=== PATIENT | female | born 1955 | race Caucasian/White ===

== ENCOUNTER 2022-03-04 12:25 | Emergency (ER) | payer OTHER, SELFPAY ==
--- NOTE | ~2022-03-04 | XR_ITS ---
EXAM: XR abdomen obstructive series DATE: 03/04/2022 13:53 HISTORY: abdominal lacaeration, evaluate for FB, GLASS . COMPARISON: None available. FINDINGS: Clear lung bases. Normal bowel gas pattern. Pelvic phleboliths. Calcifications in the subc utaneous fat superficial to the xiphoid seen in the lateral view. 1 cm long linear radiopacity, less dense than typical glass, deep to the inferior portions of the abdominal bandage. IMPRESSION: Suspected glass foreign body chips in the subcutaneous anterior abdominal fat superficial to the xiphoid. More inferiorly is a 1 cm radiopacity of uncertain significance, may represent forei gn body or artifact. Reviewed, dictated and finalized at location K. IMPRESSION: Suspected glass foreign body chips in the subcutaneous anterior abd ominal fat superficial to the xiphoid. More inferiorly is a 1 cm radiopacity of uncertain significance, may represent foreign body or artifact.
--- NOTE | ~2022-03-04 | XR_ITS ---
EXAM: XR elbow LT min 3V DATE: 03/04/2022 13:53 HISTORY: laceration to elbow, evaluate for FB, GLASS . COMPARISON: None available. FINDINGS: Normal mineralization. No fracture or dislocation. No lytic or blastic lesion. Joint space s are maintained. No erosion or periosteal change. Soft tissues within normal limits. IMPRESSION: No acute osseous finding in the left elbow. Reviewed, dictated and finalized at location K.
[2022-03-04 12:40] VITALS: BP 147/77; PULSE 87; RESP 18; TEMP 37; O2SAT 96
--- NOTE | 2022-03-04 13:40 | ED.WOUNDLAC ---
HPI - Wound/Laceration General Chief Complaint: Wound/Laceration Stated Complaint: laceration to abdomen Time Seen by Provider: 03/04/22 12:56 History of Present Illness HPI narrative: 66-year-old female presents the emergency room for evaluation of multiple lacerations. Patient states she was carrying a glass vase, when she tripped and fell. Glass vase broke and she landed on top of the broken pieces of glass. Patient suffered multiple lacerations to her abdomen, and 1 to her left elbow Related Data Allergies Allergy/AdvReac Type Severity Reaction Status Date / Time tomato AdvReac Unknown Unknown Verified 03/04/22 12:52 Review of Systems Review of Systems: CONSTITUTIONAL: Denies fever, chills, or sweats. EYES: Denies visual changes, redness, or discharge. ENT: Denies rhinorrhea, congestion, sore throat, or otalgia. CARDIOVASCULAR: Denies chest pain, palpitations, or edema. RESPIRATORY: Denies cough or dyspnea. GASTROINTESTINAL: Denies abdominal pain, nausea, vomiting, or diarrhea. GENITOURINARY: Denies dysuria or hematuria. SKIN: Reports multiple lacerations to the abdomen, 1 laceration to left elbow MUSCULOSKELETAL: Denies back pain, joint pain, or myalgia. NEUROLOGIC: Denies headache, numbness, dizziness, or weakness. PSYCHIATRIC: Denies anxiety or depression. [facility] Past Medical History Medical History BMI 35.0-35.9,adult BMI 37.0-37.9, adult Depression Elevated glucose Rhinitis Screening, lipid Shingles Surgical History Surgical History H/O: hysterectomy History of bunionectomy Family History Family History Other Asthma Family history of coronary artery disease Family history of thyroid disease Hypertension Malignant neoplasm of prostate Social History Social History Alcohol intake: current Exam Narrative: GENERAL: Well-appearing, well-nourished, no physical limitations, and in no acute distress. HEAD: Normocephalic, atraumatic. EYES: Conjunctivae normal, PERRLA and EOMI. CHEST: Clear to auscultation. No respiratory distress. No wheezes rales or rhonchi. No tenderness. HEART: Regular rate and rhythm. No murmur heard. Normal peripheral pulses. ABDOMEN: Soft, nontender, nondistended, normal active bowel sounds. X3 linear shaped lacerations : Normal external male/female exam. BACK: No CVA tenderness; No cervical/thoracic/lumbar tenderness, step-offs, bony abnormality; FROM EXTREMITIES: Normal range of motion. No edema. No clubbing or cyanosis; left elbow: Abrasion noted SKIN: Warm, dry, no rash. No noted wounds NEURO: No focal deficits. Alert and oriented x3. MAEW. CN's II-XI intact bilaterally, normal gait PSYCH: Cooperative. Normal mood and affect. Course Vital Signs Vital signs: Vital Signs Temperature 37.0 C 03/04/22 12:40 Pulse Rate 87 03/04/22 12:40 Respiratory Rate 18 03/04/22 12:40 Blood Pressure 147/77 H 03/04/22 12:40 Pulse Oximetry 96 03/04/22 12:40 Oxygen Delivery Room Air 03/04/22 12:40 Temperature 37.0 C 03/04/22 12:40 Pulse Rate 87 03/04/22 12:40 Respiratory Rate 18 03/04/22 12:40 Blood Pressure 147/77 H 03/04/22 12:40 Pulse Oximetry 96 03/04/22 12:40 Oxygen Delivery Room Air 03/04/22 12:40 Procedures Laceration Laceration 1: Date: 03/04/22 Time: 15:47 Site: other Size (cm): 2 Description: linear Local Anesthetic: lidocaine 1% and with epi Amount of anesthesia used (mL): 6 Pre-repair: wound explored and irrigated extensively ====== Skin Level ====== Skin layer closed with: nylon Size (cm): 4-0 Number of sutures: 5 Technique: simple, interrupted ====== Subcutaneous Layer ====== ====== Muscle Layer ======
[2022-03-04] MEDS: fentaNYL CITRATE INJ (*CRX) 100 MCG/2 ML VIAL (15:05)
[2022-03-04] MEDS: LIDOCAINE HCL 1% LOCAL INJ 20 ML VIAL INFILTRATE (15:33)
[2022-03-04] MEDS: TETANUS,DIPHTHERIA,AC PERTUSSIS ADULT (0.5 ML) BOOSTRIX IM (15:44)
[2022-03-04 16:19] LABS: Basophils Percent Auto 0.3 % (0.2-1.2); Eosinophils Absolute Auto 0.1 K/mm3 (0-0.3); Eosinophils Percent Auto 0.9 % (0-4.4); Hematocrit 38.7 % (37.0-47.0); Hemoglobin 12.7 g/dL (12.0-15.0); Immature Granulocyte Absolute 0.04 K/mm3 (0.00-0.031); Immature Granulocyte Percent A 0.4 % (0-0.5); Lymphocytes Percent Auto 25.4 % (18.3-44.2); Mean Corpuscular HGB Conc 32.8 g/dl (32-36); Mean Corpuscular Hemoglobin 28.5 pg (26-34); Mean Corpuscular Volume 86.8 fl (80-100); Mean Platelet Volume 10.5 fl (7.4-10.4); Monocytes Absolute Auto 0.7 K/mm3 (0.1-0.6); Monocytes Percent Auto 5.9 % (2.6-8.5); Neutrophils Absolute Auto 7.7 K/mm3 (1.3-6.7); Neutrophils Percent Auto 67.1 % (45.5-73.1); Platelet Count Result 295 k/mm3 (150-375); Red Blood Count 4.46 M/mm3 (4.2-5.4); Red Cell Distribution Width 13.3 % (11.5-14.5); White Blood Count 11.4 K/mm3 (4.5-10.0)
== END 2022-03-04 16:39 | disposition home or self-care (01) ==
PROVIDERS: Emergency Provider Nurse Practitioner Family; PCP Family Medicine
DX: S31.119A Laceration without foreign body of abdominal wall, unspecified quadrant without penetration into peritoneal cavity, initial encounter (principal); S51.012A Laceration without foreign body of left elbow, initial encounter; F32.9 Major depressive disorder, single episode, unspecified; Z90.710 Acquired absence of both cervix and uterus; Z23 Encounter for immunization; W01.110A Fall on same level from slipping, tripping and stumbling with subsequent striking against sharp glass, initial encounter
CPT/HCPCS: 12004; 36415; 73080; 74019; 85025; 90471; 90715; 96365; 96372; 99284; J0696; J3010

== ENCOUNTER → 2022-07-08 09:47 | Outpatient (CLI) | payer BC, SELFPAY ==
--- NOTE | ~2022-07-08 | CT_ITS ---
EXAMINATION: CT abdomen pelvis wo con DATE: 07/08/2022 10:02 INDICATION: Lower abdominal pain TECHNIQUE: Computed tomography (CT) of the abdomen and pelvis was performed without intravenous contr ast. The dose-length product (DLP) was 1046.24 mGy-cm. Automated exposure control and iterative recon struction technique were employed. COMPARISON: None FINDINGS: Minimal dependent atelectasis is present in the lung bases. The heart size is normal. Cysts of the liver measure up to 2.1 cm in the right hepatic lobe. Stones are present in the nondistended gallbladder. The spleen, pancreas, and adrenal glands are normal. Cysts of the kidneys measure up to 2.5 cm on the left. No pathologically enlarged abdominal or pelvic lymph nodes are identified. There is no free intraperitoneal gas or evidence of bowel obstruction. Colonic diverticulosis is present wi thout evidence of diverticulitis. There is moderate lumbar spondylosis. A fat-containing umbilical he rnia is noted. IMPRESSION: 1. No CT correlate for the patient's symptoms. Reviewed, dictated and finalized at location B. RMATION STRATEGIST
== END ==
PROVIDERS: PCP Family Medicine; Visit Provider Surgery
DX: R10.9 Unspecified abdominal pain (principal)
CPT/HCPCS: 74176

== ENCOUNTER 2022-09-10 00:09 | Day surgery (SDC) | payer BC, SELFPAY ==
[2022-08-28 11:49] VITALS: BMI 38.6
--- NOTE | 2022-08-28 11:53 | PC.NURSE ---
Report to the Outpatient Waiting Room, entrance under the green pavilion located off [facility], at time 1000 on date 09/10/22. Planned Procedure Time: 1200. Time changes happen often and if your time is changed the preop area will call you the afternoon before. - You and your visitor will be asked to self-screen and do not enter if you have any COVID symptoms. - Only one visitor is requested with a max of two and NO children visitors are allowed at this time. - The patient visitor may be requested to leave or wait in car when not with patient due to distancing restrictions. - A mask is REQUIRED within the hospital. Patients may have clear liquids (water, carbonated beverages, clear teas, apple juice) until 3 hours prior to surgery with a maximum of 20 ounces. - No food from midnight until time of surgery Take the following medications with a SIP of water the morning of surgery: LEXAPRO, ANTIBIOTIC IF STILL TAKING Medications to discontinue per physician: N/A Date to take last dose: N/A Please no make-up, nail german, hairspray, perfume, deodorant, or body powder the day of surgery. No jewelry (including any body piercings) or valuables the day of surgery, leave them at home. Please take a shower or bath the night before, or the morning of, surgery with an antibacterial soap. Wear comfortable, loose fitting clothing. - Jewelry must be removed prior to entering the operating room. Rings and piercings that are not removed may be cut off. - The hospital will not accept responsibility for valuables. - Please leave all valuables, including medications, at home the day of surgery. If you are going home after surgery, a licensed dump truck driver must drive you home. - NO public transportation without another adult if you receive anesthesia. - We recommend that an adult stay with you for 24 hours following discharge. - We also recommend that you do not drive, make important decision, drink alcoholic beverages, or take any drugs that were not prescribed by your health care provider for at least 24 hours after your discharge time. Follow any additional instructions given to you from your surgeon. If you or anyone in your household have experienced Covid symptoms in the past week, please notify your surgeon or the nurse liaison at the phone number below for possible testing. Telephone instructions given to PT - ИВАН EDMOND and asked if any additional questions and then verbalized understanding. Patient advised to call surgeon office or pre surgery nurse liaison [phone] if any additional questions.
[2022-09-10 11:00] VITALS: BP 142/74; PULSE 69; RESP 16; TEMP 36.7; O2SAT 98
[2022-09-10] MEDS: LACTATED RINGERS 1,000 ML 30 ML IV CONT (11:21)
--- NOTE | 2022-09-10 11:46 | P.PNAN_ITS ---
Anes - Initial Pre Proc Eval Procedure: Operation Date: 09/10/22 12:00 Proposed Procedures p Excisional Biopsy Hypertrophic Scar Left Upper Quadrant Abdominal Wall - Doretha Rodriguez MD Date/Time: 09/10/22 11:46 Surgeon: Doretha Rodriguez MD Pre Op Diagnosis: HYPERTROPHIC SCAR Patient Data Age: 66 Gender: F Height: 1.63 m Weight: 102.1 kg Allergies Allergy/AdvReac Type Severity Reaction Status Date / Time tomato AdvReac Unknown Unknown Verified 08/28/22 11:47 adhesive tape AdvReac Blister Verified 08/28/22 11:48 Home Medications Medication Instructions Recorded Confirmed Type escitalopram oxalate 20 mg tablet 20 mg PO DAILY #30 tabs 06/04/22 09/10/22 Rx (Lexapro) aspirin 81 mg capsule 81 mg PO DAILY 06/25/22 09/10/22 History Patient hx anesthesia problems: none Family hx anesthesia problems: none Results Review: All pre-operative results and documents have been reviewed as part of the pre- operative evaluation. [facility], [facility] Past Medical History Medical History Abdominal wall pain BMI 35.0-35.9,adult BMI 37.0-37.9, adult BMI 39.0-39.9,adult Depression Elevated glucose Rhinitis Screening, lipid Shingles Surgical History Surgical History H/O: hysterectomy History of bunionectomy Family History Family History Other Asthma Family history of coronary artery disease Family history of thyroid disease Hypertension Malignant neoplasm of prostate Social History Social History Smoking status: Never smoker Alcohol intake: current Alcohol use details: 1/MONTH Substance use: never Substance use type: does not use Living arrangements: with family 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 Informed Consent: The patient's anesthetic plan and its attendant risks and benefits were discussed with the patient/family/POA. Questions were solicited and answers provided to the satisfaction of the patient/family/POA.
--- NOTE | 2022-09-10 11:56 | WPDHPUPDATE1 ---
History and Physical Update Update Date/Time: 09/10/22 11:56 History and Physical has been reviewed, including an updated exam of the patient. There are NO changes in the patient's condition. Risks, benefits, and alternatives have been discussed and questions answered. Patient agrees to proceed with procedure.
[2022-09-10] MEDS: ceFAZolin 2 GM/D5W 50 ML 2 GM/50 ML BAG IVPB (12:07)
[2022-09-10] MEDS: LIDOCAINE HCL 1% PF 30 ML VIAL INFILTRATE (12:23)
[2022-09-10 12:42] VITALS: BP 111/66; PULSE 70; RESP 12; O2SAT 100
--- NOTE | 2022-09-10 12:45 | W.PM.PROC2 ---
Procedure Note - Detailed Date of Procedure 09/10/22 Pre-op Diagnosis Painful hypertrophic scar left upper abdomen Post-op Diagnosis Same Procedure Performed excisional biopsy hypertrophic scar left upper abdomen measuring approximately 4 x 2 cm Surgeon Doretha Rodriguez MD Anesthesia MAC and Local Indications 66-year-old female with hypertrophic scar from previous trauma in left upper abdomen with significant pain in the area Findings hypertrophic scar left upper abdomen with scar extending into the subcutaneous tissue Description of Procedure The patient was taken to the operating room and placed in the supine position. After adequate induction MAC anesthesia, the patient was prepped and draped in the normal sterile fashion. A time-out was then done number by the patient's identity, as well as the procedure being performed. I began by localizing the area in and around this hypertrophic scar in the left upper abdomen. Once locally anesthetized, I made an elliptical incision in the dermis to excise the scar. This incision was carried down into the subcutaneous tissue. There was noted to be scarring within the subcutaneous tissue as well and this was subsequently removed with the specimen. The specimen was completely excised and will be sent to pathology for further review. This specimen measured approximately 4 x 2 cm and contained both dermis subcutaneous tissue. I then used Bovie cautery to gain hemostasis. The subcutaneous tissue was closed with 3-0 Vicryl suture. The skin was closed with 4-0 Monocryl subcuticular suture. The patient tolerated procedure well and was alert awake in the operating room. She will sent to the recovery room in stable condition. Estimated Blood Loss 5 Drains No Packing No Pathology Yes Complications No immediate complications Condition Stable Disposition PACU [facility] Billing Surgery - Charge Forward: Surgery Billing
[2022-09-10 13:12] VITALS: BP 134/67; PULSE 62; RESP 16; O2SAT 99
[2022-09-10] MEDS: oxyCODONE HCL (*CRX) 5 MG TAB IR PO (13:27)
[2022-09-10 13:42] VITALS: BP 125/72; PULSE 58; RESP 16
== END 2022-09-10 14:00 | disposition home or self-care (01) ==
PROVIDERS: PCP Family Medicine; Visit Provider Surgery
PROC: (CPT 11406; principal; 2022-09-10 12:00)
DX: L91.0 Hypertrophic scar (principal); F32.A Depression, unspecified; Z79.82 Long term (current) use of aspirin; E66.9 Obesity, unspecified; Z68.38 Body mass index [BMI] 38.0-38.9, adult
CPT/HCPCS: 11406; 12032; 88304; A9270; J0690; J2250; J2704; J3010; J7120

== ENCOUNTER 2024-01-21 01:08 | Day surgery (SDC) | payer BC, SELFPAY ==
[2024-01-06 11:12] VITALS: BMI 31.0
[2024-01-21 06:15] VITALS: BP 134/80; PULSE 70; RESP 16; TEMP 35.9; O2SAT 100; BMI 30.2
[2024-01-21] MEDS: LACTATED RINGERS 1,000 ML 150 ML IV CONT (06:35)
--- NOTE | 2024-01-21 06:40 | P.PNAN_ITS ---
Anes - Initial Pre Proc Eval Procedure: Operation Date: 01/21/24 07:30 Proposed Procedures p Screening Colonoscopy - Amador Mccallum DO Date/Time: 01/21/24 06:40 Surgeon: Amador Mccallum DO Pre Op Diagnosis: Screening for malignant neoplasm of colon Patient Data Age: 68 Gender: F Height: 1.63 m Weight: 79.9 kg Last Vital Signs Temp 35.9 C L 01/21/24 06:15 Pulse 70 01/21/24 06:15 Resp 16 01/21/24 06:15 BP 134/80 01/21/24 06:15 Pulse Ox 100 01/21/24 06:15 O2 Del Method Room Air 01/21/24 06:15 Allergies Allergy/AdvReac Type Severity Reaction Status Date / Time tomato AdvReac Unknown Unknown Verified 01/21/24 06:20 adhesive tape AdvReac Blister Verified 01/21/24 06:20 Home Medications Medication Instructions Recorded Confirmed Type aspirin 81 mg capsule 81 mg PO DAILY 06/25/22 01/21/24 History loratadine 10 mg tablet (Claritin) 10 mg PO DAILY 01/06/24 01/21/24 History Patient hx anesthesia problems: none Family hx anesthesia problems: none Results Review: All pre-operative results and documents have been reviewed as part of the pre- operative evaluation. [facility] Past Medical History Medical History Abdominal wall pain BMI 31.0-31.9,adult BMI 32.0-32.9,adult BMI 35.0-35.9,adult BMI 37.0-37.9, adult BMI 39.0-39.9,adult Depression Elevated glucose Rhinitis Screening, lipid Shingles Surgical History Surgical History H/O excision of mass exc bx LUQ abd wall hypertrophic scar 09/10 H/O: hysterectomy History of bunionectomy Family History Family History Other Asthma Family history of coronary artery disease Family history of thyroid disease Hypertension Malignant neoplasm of prostate Social History Social History Smoking status: Never smoker Alcohol intake: current Alcohol use details: 1/MONTH Substance use: never Substance use type: does not use Living arrangements: with family Occupation/Education: occupation Additional occupation/education comments: [employer] Spiritual care concerns: No Anes - Eval Final PreProcedure Day of Procedure 01/21/24 06:40 Patient weight: overweight Heart: regular rate and rhythm Lungs: clear to auscultation Airway: Mallampati scale class II Neurological: alert and oriented Last oral intake: >/= 8 hours ASA classification: II Emergent: no Anesthetic plan: proceed Anesthesia type and monitoring: general GIVS and standard monitoring Results Review: All pre-operative results and documents have been reviewed as part of the pre- operative evaluation. Informed Consent: The patient's anesthetic plan and its attendant risks and benefits were discussed with the patient/family/POA. Questions were solicited and answers provided to the satisfaction of the patient/family/POA.
--- NOTE | 2024-01-21 07:21 | PM.IMHP ---
H&P: HPI History of Present Illness Date/Time: 01/21/24 07:21 Chief Complaint: Screening for colorectal cancer Narrative: this is a 68-year-old woman who presents for colonoscopy. It has been about 10 years since her last colonoscopy. She does think that she had polyps removed the last time. She has a family history of colon cancer in a grandparent but no first-degree relative history. She denies any hematochezia or melena. Review of Systems Review of Systems: All systems reviewed & are unremarkable except as noted in HPI and below Constitutional: Constitutional: Denies chills, Denies fever(s), Denies headache(s) and Denies weight loss Eyes: Eyes: Denies change in vision ENT: Denies dizziness, Denies headache(s), Denies neck mass and Denies throat swelling Cardiovascular: Cardiovascular: Denies chest pain, Denies lightheadedness and Denies dyspnea Respiratory: Respiratory: Denies cough, Denies dyspnea and Denies wheezing Gastrointestinal: Gastrointestinal: Denies abdominal pain, Denies change in bowel habits, Denies nausea and Denies vomiting Genitourinary: Genitourinary: Denies hematuria and Denies dysuria Musculoskeletal: Musculoskeletal: Reports as per HPI Integumentary/Breasts: Skin/Breast: Reports as per HPI Neurologic: Denies dizziness and Denies headache(s) Allergic/Immunologic: Allergic/Immunologic: Denies throat swelling and Denies wheezing PMFSH Past Medical History Medical History Abdominal wall pain BMI 31.0-31.9,adult BMI 32.0-32.9,adult BMI 35.0-35.9,adult BMI 37.0-37.9, adult BMI 39.0-39.9,adult Depression Elevated glucose Rhinitis Screening, lipid Shingles Surgical History Surgical History H/O excision of mass exc bx LUQ abd wall hypertrophic scar 09/10 H/O: hysterectomy History of bunionectomy Family History Family History Other Asthma Family history of coronary artery disease Family history of thyroid disease Hypertension Malignant neoplasm of prostate Social History Social History Smoking status: Never smoker Alcohol intake: current Alcohol use details: 1/MONTH Substance use: never Substance use type: does not use Living arrangements: with family Occupation/Education: occupation 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 Spiritual care concerns: No Meds Home Medications and Allergies Home Medications Medication Instructions Recorded Confirmed Type aspirin 81 mg capsule 81 mg PO DAILY 06/25/22 01/21/24 History loratadine 10 mg tablet (Claritin) 10 mg PO DAILY 01/06/24 01/21/24 History Allergies Allergy/AdvReac Type Severity Reaction Status Date / Time tomato AdvReac Unknown Unknown Verified 01/21/24 06:20 adhesive tape AdvReac Blister Verified 01/21/24 06:20 Vital Signs Vital Signs - 24 hr 01/21/24 06:15 Temperature 35.9 C L Pulse Rate 70 Respiratory Rate 16 Blood Pressure 134/80 Pulse Oximetry 100 Oxygen Delivery Room Air Exam Const: General: no acute distress and alert Orientation/consciousness: patient oriented x3 HENMT: Head: normocephalic and atraumatic Ears: hearing grossly normal bilaterally Face/Nose/Sinus: Normal nares present Mouth: Yes Normal oral and palatal mucosa present Eyes: Periorbital: periorbital findings normal Sclera: sclerae normal EOM: EOMs intact bilaterally Neck: Neck: normal visual inspection, no lymphadenopathy and trachea midline Chest: Chest palpation & inspection: normal inspection of the chest Resp: Effort & Inspection: normal respiratory effort Auscultation: clear to auscultation bilaterally Cardio: Jugular venous distension: no JVD Rate: regular rate Rhythm: regular rhythm Heart sounds: S1 normal heart sound present and S2 normal h
[2024-01-21 07:43] VITALS: BP 101/66; PULSE 60; RESP 18; O2SAT 100
[2024-01-21 07:53] VITALS: BP 114/69; PULSE 58; RESP 16; O2SAT 100
[2024-01-21 08:03] VITALS: BP 117/72; PULSE 58; RESP 19; O2SAT 100
== END 2024-01-21 08:13 | disposition home or self-care (01) ==
PROVIDERS: PCP Family Medicine; Visit Provider Surgery
PROC: 0DJD8ZZ Inspection of Lower Intestinal Tract, Via Natural or Artificial Opening Endoscopic (ICD-10-PCS; CPT 45378; principal; 2024-01-21 07:30)
DX: Z12.11 Encounter for screening for malignant neoplasm of colon (principal); K57.30 Diverticulosis of large intestine without perforation or abscess without bleeding; Z79.82 Long term (current) use of aspirin
CPT/HCPCS: 45378; J2704; J7120